=== PATIENT | male | born 2000 | race Caucasian/White ===

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

== ENCOUNTER 2020-04-30 20:11 | Emergency (ER) | payer OTHER, BC ==
[~2020-04-30] VITALS: Ht 185.4 cm; Wt 72.6 kg
[2020-04-30] MEDS ORDERED: Naprosyn500 MG PO (21:56)
== END 2020-04-30 22:01 | disposition home or self-care (01) ==
LOC: ER 20:11
DX: S60.031A Contusion of right middle finger without damage to nail, initial encounter (principal); F17.200 Nicotine dependence, unspecified, uncomplicated; X58.XXXA Exposure to other specified factors, initial encounter
CPT/HCPCS: 11740; 73140; 99283-25

== ENCOUNTER 2021-05-10 01:57 | Observation (INO) | payer BC | END 2021-05-10 11:00 | disposition home or self-care (01) | LOC: ER 01:57 → EOR 02:39 | PROVIDERS: ADMIT Emergency Medicine | DX: F43.21 Adjustment disorder with depressed mood (principal); F10.10 Alcohol abuse, uncomplicated; Y90.6 Blood alcohol level of 120-199 mg/100 ml; F17.210 Nicotine dependence, cigarettes, uncomplicated; Z81.1 Family history of alcohol abuse and dependence; Z81.8 Family history of other mental and behavioral disorders ==

== ENCOUNTER 2022-02-25 15:09 | Emergency (ER) | payer BC, OTHER ==
[~2022-02-25] VITALS: Ht 185.4 cm; Wt 74.8 kg
[~2022-02-25 15:09] MED LIST changes: +Naprosyn500 MG PO
[2022-02-25] MEDS ORDERED: Veetids 500500 MG PO (15:39)
== END 2022-02-25 16:30 | disposition home or self-care (01) ==
LOC: ER 15:09
DX: K04.7 Periapical abscess without sinus (principal); F17.210 Nicotine dependence, cigarettes, uncomplicated
CPT/HCPCS: A9270; J1885

== ENCOUNTER 2022-09-11 17:43 | Emergency (ER) | payer BC, OTHER ==
[~2022-09-11] VITALS: Ht 185.4 cm; Wt 74.8 kg
[~2022-09-11 17:43] MED LIST changes: +Veetids 500500 MG PO
[2022-09-11 19:43] LABS: Influenza B, PCR NEGATIVE (NEGATIVE); Resp Syncytial Virus, PCR NEGATIVE (NEGATIVE); SARS-Cov-2 (COVID-19) PCR, MMC NEGATIVE (NEGATIVE)
[2022-09-11 19:45] LABS: Influenza A, PCR POSITIVE (NEGATIVE)
== END 2022-09-11 19:40 | disposition left against medical advice (07) ==
LOC: ER 17:43
PROVIDERS: Physician Assistant
DX: R05.9 Cough, unspecified (principal); R11.10 Vomiting, unspecified; Z53.21 Procedure and treatment not carried out due to patient leaving prior to being seen by health care provider
CPT/HCPCS: 0241U

== ENCOUNTER 2023-01-05 11:32 | Emergency (ER) | payer OTHER ==
[~2023-01-05] VITALS: Ht 188 cm; Wt 72.6 kg
== END 2023-01-05 12:26 | disposition home or self-care (01) ==
LOC: ER 11:32
DX: S61.411A Laceration without foreign body of right hand, initial encounter (principal); F17.210 Nicotine dependence, cigarettes, uncomplicated; Z23 Encounter for immunization; W26.8XXA Contact with other sharp object(s), not elsewhere classified, initial encounter
CPT/HCPCS: 90714

== ENCOUNTER → 2024-06-18 | Outpatient (CLI) | payer OTHER ==
[~2024-06-18] MED LIST changes: +PERCOCET 10-321 EA10 PO
== END ==
LOC: LAB 18:00 → LAB SHORT 18:00
DX: T81.89XA Other complications of procedures, not elsewhere classified, initial encounter (principal)
CPT/HCPCS: 87070; 87205

== ENCOUNTER 2024-12-21 14:43 | Emergency (ER) | payer OTHER ==
[~2024-12-21] VITALS: Ht 185.4 cm; Wt 77.1 kg
[2024-12-21 14:48] VITALS: BP 119/95
[2024-12-21] MEDS ORDERED: PRED10 PO (14:51)
== END 2024-12-21 15:03 | disposition home or self-care (01) ==
LOC: ER 14:43
DX: L25.9 Unspecified contact dermatitis, unspecified cause (principal); F17.210 Nicotine dependence, cigarettes, uncomplicated; Z79.899 Other long term (current) drug therapy
CPT/HCPCS: 99282